=== PATIENT | female | born 1965 | race Caucasian/White ===

== ENCOUNTER 2020-06-25 04:28 | Day surgery (SDC) | payer OTHER ==
[2020-06-23 14:42] VITALS: BMI 24.2
[2020-06-25 12:48] VITALS: TEMP 97.5
[2020-06-25 13:44] VITALS: BP 131/59; PULSE 59
== END 2020-06-25 14:25 | disposition home or self-care (01) ==
LOC: JASU-ENDO 04:28
PROVIDERS: ATTEND Internal Medicine Gastroenterology
PROC: 0DBN8ZX Excision of Sigmoid Colon, Via Natural or Artificial Opening Endoscopic, Diagnostic (ICD-10-PCS; 2020-06-25)
PROC: 0DBM8ZX Excision of Descending Colon, Via Natural or Artificial Opening Endoscopic, Diagnostic (ICD-10-PCS; principal; 2020-06-25 11:00)
DX: Z12.11 Encounter for screening for malignant neoplasm of colon (principal); D12.4 Benign neoplasm of descending colon
CPT/HCPCS: 88305-TC